=== PATIENT | female | born 1980 | race Caucasian/White ===

== ENCOUNTER 2018-07-01 14:32 | Emergency (ER) | payer MEDICAID ==
[~2018-07-01] VITALS: Ht 170.2 cm; Wt 77.3 kg
[2018-07-01 14:34] VITALS: Ht 170.2 cm; Wt 77.3 kg
[2018-07-01] MEDS ORDERED: DEPAKOTE500 MG PO (14:36)
[2018-07-01] MEDS ORDERED: KLONOPIN0.5 MG PO (14:37)
[2018-07-01 14:59] LABS: BASOPHILS 0.2 % (0-2); EOSINOPHILS 1.2 % (0-7); HEMATOCRIT 41.7 % (36.0-48.0); HEMOGLOBIN 14.7 g/dL (12-16); IMMATURE GRANULOCYTES 0.1 % (0-5); LYMPHOCYTES 40.6 % (15-50); MCH 30.8 pg (26.0-34.0); MCHC 35.3 g/dL (31.0-37.0); MCV 87.4 fL (80.0-100.0); MEAN PLATELET VOLUME 9.3 fL (7.4-10.4); MONOCYTES 6.2 % (2-11); NEUTROPHILS 51.7 % (40-80); PLATELET COUNT 324 10x3/uL (130-400); RBC 4.77 10x6/uL (4.00-5.40); RDW 13.3 % (11.5-14.5); WBC 8.7 10x3/uL (4.8-10.8)
[2018-07-01 15:09] LABS: APPEARANCE CLEAR (CLEAR); BILIRUBIN NEGATIVE (NEGATIVE); COLOR YELLOW (YELLOW); GLUCOSE NEGATIVE (NEGATIVE); KETONE NEGATIVE (NEGATIVE); NITRITE NEGATIVE (NEGATIVE); PROTEIN NEGATIVE (NEGATIVE); SPECIFIC GRAVITY 1.015 (1.005-1.020); UROBILINOGEN NORMAL (NORMAL)
[2018-07-01 15:10] LABS: WHITE CELLS - URINE 25-50 /hpf (0-5)
[2018-07-01 15:11] LABS: RED CELLS - URINE 0-5 /hpf (0-5)
[2018-07-01 15:14] LABS: ALKALINE PHOSPHATASE 81 U/L (46-116); ALT (SGPT) 45 U/L (10-68); BILIRUBIN - TOTAL 0.27 mg/dL (0.2-1.3); CALC OSMOLALITY 278 mosm/kg (275-300); CALCIUM 9.1 mg/dL (8.5-10.1); CHLORIDE - SERUM 104 mmol/L (98-107); CREATININE - SERUM 0.8 mg/dL (0.6-1.3); GLUCOSE 129 mg/dL (74-106); POTASSIUM - SERUM 3.6 mmol/L (3.5-5.1); PROTEIN - SERUM 8.3 g/dL (6.4-8.2); SODIUM 140 mmol/L (136-145); UREA NITROGEN 6 mg/dL (7-18); eGFR NON AFRICAN AMERICAN 85 mL/min (90-120)
[2018-07-01 15:14] LABS: BACTERIA FEW /hpf (NONE SEEN)
[2018-07-01] MEDS ORDERED: MACROBID100 MG PO (19:54)
[2018-07-01] MEDS ORDERED: VOLTAREN75 MG PO (19:54)
[2018-07-01] MEDS ORDERED: COMPAZINE5 MG PO (19:54)
[2018-07-01 20:06] VITALS: BP 117/60
== END 2018-07-01 20:06 | disposition home or self-care (01) ==
LOC: D.ER 14:32
PROVIDERS: Emergency Medicine
DX: N39.0 Urinary tract infection, site not specified (principal); G40.909 Epilepsy, unspecified, not intractable, without status epilepticus; F17.200 Nicotine dependence, unspecified, uncomplicated